=== PATIENT | female | born 1975 | race American Indian/Alaskan Native ===

== ENCOUNTER → 2017-06-15 | Outpatient (CLI) | payer OTHER ==
[2014-07-13 11:05] VITALS: BMI 28.9
[~2017-06-15] MED LIST: IBU800 PO; IBUP800T37 PO; PER PO
--- NOTE | 2017-06-16 10:54 | RADIOLOGY IMAGING REPORT ---
FACILITY: PATIENT NAME: YENIFER LINDSAY : [id number] MR: [id number] V: [id number] EXAM DATE: [id number] ORDERING PHYSICIAN: JAMESON JONES TECHNOLOGIST: Grace Anaya PROCEDURE:RIGHT DIGITAL DIAGNOSTIC RIGHT MAMMOGRAM WITH CAD ASSISTED INTERPRETATION & 3D TOMOSYNTHESIS COMPARISON:Prior mammograms 03/24/17, 03/07/17 INDICATIONS:6 MONTH F/U FINDINGS: Small amount of fibroglandular tissue is seen throughout the breasts. The parenchymal pattern has remained stable allowing for difference in mammographic technique & patient positioning. Tissue of increased density in the upper outer quadrant of the Right breast likewise has remained stable. A 6 month follow-up bilateral mammogram is recommended to document stability of the fibroglandular tissue in the upper outer quadrant of the Right breast. The patient will be due for her annual mammogram at that time. DIAGNOSTIC CATEGORY 3--PROBABLY BENIGN FINDING. RECOMMENDATIONS: SIX MONTH FOLLOW-UP DIAGNOSTIC MAMMOGRAM: BILATERAL BREASTS. IMPRESSION: BIRADS 3: Probably benign finding A 6 month follow up bilateral mammogram is recommended as described above. Please see above discussion. Dictated by: India Bennett M.D. on 06/15/2017 at 16:51 Transcribed by: RICKY on 06/16/2017 at 10:46 Approved by: India Bennett M.D. on 06/16/2017 at 10:53 [facility]
== END ==
LOC: MAMO 06:53
PROVIDERS: ATTEND Obstetrics & Gynecology
DX: R92.2 Inconclusive mammogram (principal)
CPT/HCPCS: 77065

== ENCOUNTER → 2018-02-16 | Outpatient (CLI) | payer OTHER ==
[2014-07-13 11:05] VITALS: BMI 28.9
--- NOTE | 2018-02-16 16:05 | RADIOLOGY IMAGING REPORT ---
FACILITY: [facility] - [place] PATIENT NAME: YENIFER LINDSAY : [id number] MR: [id number] V: [id number] EXAM DATE: [id number] ORDERING PHYSICIAN: JAMESON JONES TECHNOLOGIST: Grace Anaya PROCEDURE:BILATERAL DIAGNOSTIC DIGITAL MAMMOGRAM WITH CAD ASSISTED INTERPRETATION & 3D TOMOSYNTHESIS COMPARISON:Right breast diagnostic mammograms 06/15/17 & 03/24/17 as well as baseline screening study 03/07/17. INDICATIONS:6 MONTH FOLLOW UP OF RIGHT BREAST ASYMMETRIES FINDINGS: The breasts have scattered fibroglandular parenchyma densities. Asymmetries on the Right breast are not significantly changed with any concern for malignancy. In fact, the more central and rounder density in the CC projection is a bit less discreet comparing back to last February. No new mammographic findings concerning for malignancy on either side. DIAGNOSTIC CATEGORY 2--BENIGN FINDING. RECOMMENDATIONS: ROUTINE MAMMOGRAM AND CLINICAL EVALUATION IN 1 YR. IMPRESSION: BIRADS 2: Benign finding. I discussed the exam results with the patient at completion of the mammogram. Dictated by: Denys Galan on 02/16/2018 at 15:33 Transcribed by: RICKY on 02/16/2018 at 15:47 Approved by: Denys Galan on 02/16/2018 at 16:04 [facility]
== END ==
LOC: MAMO 01:02
PROVIDERS: ATTEND Obstetrics & Gynecology
DX: R92.2 Inconclusive mammogram (principal)
CPT/HCPCS: 77062; 77066